=== PATIENT | female | born 2000 | race Two or more races ===

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

== ENCOUNTER 2023-07-18 17:44 | Emergency (ER) | payer OTHER, SELFPAY ==
[2023-07-18 17:45] VITALS: BP 133/95; PULSE 94; RESP 14; TEMP 35.8; O2SAT 100; BMI 30.5
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
[2023-07-18] MEDS: Diphth,Pertuss(Acell),Tet Vac 0.5 ML Vial IM (18:30)
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
[2023-07-18 20:06] VITALS: BP 123/85; PULSE 74; RESP 16; O2SAT 100
[2023-07-18 20:20] VITALS: BP 120/75; PULSE 82; RESP 18; TEMP 36.9; O2SAT 99
== END 2023-07-18 20:21 | disposition home or self-care (01) ==
PROVIDERS: Emergency Provider Emergency Medicine; PCP Pediatrics; Visit Provider Emergency Medicine
DX: S06.0X0A Concussion without loss of consciousness, initial encounter (principal); S60.222A Contusion of left hand, initial encounter; S80.02XA Contusion of left knee, initial encounter; S80.211A Abrasion, right knee, initial encounter; Y04.8XXA Assault by other bodily force, initial encounter; Y92.59 Other trade areas as the place of occurrence of the external cause; Z23 Encounter for immunization
CPT/HCPCS: 70450; 70486; 73130; 73564; 90471; 90715; 99283

== ENCOUNTER 2023-09-14 19:35 | Emergency (ER) | payer OTHER, SELFPAY ==
[2023-09-14 19:36] VITALS: BP 128/77; PULSE 77; RESP 18; TEMP 36.4; O2SAT 98; BMI 30.4
--- NOTE | 2023-09-14 20:46 | EDS_ITS ---
HPI HPI - Female History of Present Illness Chief Complaint: Informant: patient and parent Associated Symptoms Associated Symptoms: Negative for Dysuria, Frequency or Urgency Test: Positive Sexually: Positive for Active P: 0 Ab: 0 Narrative Narrative: 23-year-old female no seen past medical history other than some anxiety for which she takes Zoloft. She is currently 6 weeks has had no care as of yet. She has been having nausea and vomiting. Mom gave her some Zofran to use which has not stopped her vomiting. She denies any abdominal pain. She denies any fever. She denies any dysuria. She denies any vaginal bleeding. She denies any diarrhea. Prior similar symptoms: Yes Recent Illness/Hospitalization: No PFSH PFSH Home Medications ?Medication ?Instructions ?Recorded ?Last Taken ?Type amoxicillin 875 mg-potassium 1 tab PO BID 07/18/23 Unknown History clavulanate 125 mg tablet sertraline 100 mg tablet 100 mg PO DAILY 07/18/23 Unknown History ondansetron 4 mg disintegrating 4 mg PO Q6H PRN nausea and 09/14/23 Unknown Rx tablet vomiting #14 tabs Allergy/AdvReac Type Severity Reaction Status Date / Time No Known Allergies Allergy Verified 09/14/23 19:36 Social History household members: family number of children: 0 current occupational status: employed 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 Review of Systems ROS Unobtainable: Denies due to encephalopathy Constitutional Constitutional ED: Denies chills or fever(s) Eyes Eyes: Denies blurry vision ENT ENT ED: Denies ear pain Cardiovascular Cardiovascular: Denies chest pain Respiratory/Chest Respiratory/Chest: Denies cough or dyspnea Gastrointestinal Gastrointestinal: Reports nausea and vomiting; Denies abdominal pain, constipation, diarrhea or melena Genitourinary Genitourinary ED: Denies dysuria or hematuria Musculoskeletal Musculoskeletal: Denies arthralgias or myalgias Integumentary Denies abscess Neurologic Neurologic: Denies headache(s) Psychiatric Psychiatric: Reports anxiety Endocrine Endocrinology: Denies heat intolerance Hematologic/Lymphatic Hematologic/Lymphatic: Denies easy bleeding Allergic/Immunologic Allergic/Immunologic ED: Denies mouth swelling or tongue swelling EXAM Physical Exam Narrative Exam Narrative: Well-appearing 21-year-old female. No acute distress. Mom at bedside. Vital signs stable afebrile. H EENT exam mild dry mucous membranes. Pupils round react light. Neck nontender no lymphadenopathy. Lungs clear to auscultation. Heart regular rhythm rate about 75 no murmur. Abdomen soft nondistended normal bowel sounds no peritoneal signs. Both the right upper and right lower quadrants are unremarkable. No distention. Moving all 4 extremities. Normal strength. No edema. Back nontender. Neurologically she is awake and alert with no focal motor deficits. Benign exam. Other mild dehydration. Const Vital Signs: 09/14/23 19:36 09/14/23 21:35 Temperature 97.5 F L Temperature Source Temporal Pulse Rate 77 57 L Respiratory Rate 18 18 Blood Pressure 128/77 H 91/71 Blood Pressure Mean 94 77 Pulse Ox 98 99 Oxygen Delivery Method Room Air Room Air Positive well nourished and well developed; Negative for obese, cachectic, contractures or unkempt General Appearance ED: well developed and NAD; Negative for unkempt, cachectic, contractures, odor of alcohol detected or pallor Nutritional Appearance: Negative for cachectic or obese HEENT Reports dry mucous membranes; Denies moist mucous membranes Negative for trauma or tenderness Mouth ED: Yes dry mucous membranes Mouth: dry mucous membranes Eyes PERRL and EOMs intact bilaterally General Eye ED: Negative for pale conjunctiva or scleral icterus Neck no lymphadenopathy, supple and no JVD General: Negative for other Thyroid: Negative for tender Lymph Lymphatic: Negative for other Chest Wall inspection of chest normal and palpation of chest normal Chest: Negative for other Resp No normal respiratory effort and No clear to auscultation bilaterally Effort and Inspection: Negative for pain with movement Auscultation: Negative for rales, rhonchi, wheezes or diminished lung sounds Cardio regular rate, regular rhythm, S1 normal heart sound, no murmurs and no JVD Rate: Negative for bradycardia or tachycardic Rhythm: Negative for abnormal rhythm GI normal to inspection, nondistended, normoactive bowel sounds, soft to palpation, non-tender, non-distended and no masses Auscultation: normoactive bowel sounds Palpation: Negative for tender, guarding or rigid Back/Spine no CVA tenderness General Back: Negative for CVA tenderness Cervical Spine: Negative for cervical spine tenderness Thoracic Spine / Upper Back: Negative for thoracic spinal tenderness Lumbar Spine / Lower Back: Negative for lumbar spinal tenderness Sacrum: Negative for other Extremity normal to inspection and full ROM General Extremety ED: Negative for edema or tenderness General Extremity: Negative for edema Neuro CN's II-XII intact bilaterally Sensorium / Orientation: alert, oriented to person, oriented to place and oriented to time; Negative for confused, lethargic or stuporous Motor Exam: strength 5/5 throughout Psych mental status grossly normal Appearance: Negative for unkempt Attitude: No agitated Speech: No other Mood & Affect: Negative for depressed, anxious or tearful Skin no rashes or lesions noted and no wounds General Skin Exam: Negative for jaundice or pallor Rashes: No rashes noted Trauma: Negative for other MDM MDM MDM Narrative Medical decision making narrative: 23-year-old female currently first trimester with her first she is G1, P0 Ab0. With nausea vomiting. Looks clinically mildly dehydrated. Will be given IV fluids. Screening labs. She is having no vaginal bleeding or pelvic pain she does not need an ultrasound or clot. She be treated with Zofran and see if she can handle p.o. fluids. Repeat exam at 9:43 PM patient doing well. Received a liter normal saline. I went over her labs of both her and her mom. She will be given a prescription for Zofran for home. Outpatient follow-up with one of the 2 local OB groups. Return if feeling worse. They are comfortable with the plan. History & Record Review Discussion w/independent historian: Patient Additional record(s) reviewed:: No prior records Lab Data Attestation: I reviewed the patient's lab results. Lab results narrative: CBC normal. White count of 9. H&H 12 and 37. Platelets 328. Electrolytes show sodium 134. Potassium 3.3. Gap 11. Normal BUN of 12 creatinine 0.5. Glucose 86. Labs: Laboratory Results - last 24 hr 09/14/23 20:55 WBC 9.4 RBC 5.03 Hgb 12.3 Hct 37.5 MCV 74.6 L MCH 24.5 L MCHC 32.8 RDW Std Deviation 45.3 H RDW Coeff of Farhad 17.0 H Plt Count 328 MPV 10.0 Immature Gran % (Auto) 0.300 Neut % (Auto) 72.3 H Lymph % (Auto) 18.3 L Garfield % (Auto) 8.8 Eos % (Auto) 0.1 Baso % (Auto) 0.2 Absolute Neuts (auto) 6.8 Absolute Lymphs (auto) 1.72 Nucleated RBC % 0 Sodium 134 L Potassium 3.3 L Chloride 104 Carbon Dioxide 19.0 L Anion Gap 11 BUN 12 Creatinine 0.52 L Estim Creat Clear Calc 180.71 Est GFR (MDRD) Af Amer 191 Est GFR (MDRD) Non-Af 158 BUN/Creatinine Ratio 23.2 H Glucose 86 Calcium 9.4 Discharge Plan Triage Chief Complaint: Other Complaint: Nausea/Vomiting ED Provider: Yohan Liu Dx/Rx/DC Orders Clinical Impression: Hyperemesis arising during , First trimester , Acute hypokalemia Instructions: ED Hyperemesis Gravidarum Prescriptions: New ondansetron 4 mg tablet,disintegrating 4 mg PO Q6H PRN (Reason: nausea and vomiting) Qty: 14 0RF No Action sertraline 100 mg tablet 100 mg PO DAILY amoxicillin-pot clavulanate 875-125 mg tablet 1 tab PO BID Primary Care Provider: Loren Magallon Referrals: Loren Magallon MD [Primary Care Provider] - Sindhu Harris MD [Med Staff - Active Staff] - As soon as possible Activity Restrictions/Additional Instructions: Zofran as needed for nausea you may swallow or let dissolve under your tongue. Plenty of fluids and rest. Water, 7-Up and Gatorade. Slowly increase your diet as you are tolerating it. Call and follow-up with one of the local OB groups to get your initial care visit. Return emergency department if you are feeling worse. Print Language: [place] Disposition Disposition: Home, Self Care
[2023-09-14 21:07] LABS: Absolute Lymphocyte Count 1.72 X10^3/uL (0.83-4.51); Absolute Neutrophil Count 6.8 X10^3/uL (2.0-7.7); Basophil# 0.02 X10^3/uL; Basophil% 0.2 % (0-1); Eosinophil# 0.01 X10^3/uL; Eosinophils% 0.1 % (0-5); Hematocrit 37.5 % (37-47); Hemoglobin 12.3 g/dL (12.0-15.0); Lymphocyte # 1.72 X10^3/ul (0.83-4.51); Lymphocyte % 18.3 % (19-41); Mean Corp Hgb Conc 32.8 g/dL (32-36); Mean Corpuscular Hgb 24.5 pg (27.0-32.0); Mean Corpuscular Volume 74.6 fL (81-99); Monocyte# 0.83 X10^3/uL; Monocyte% 8.8 % (0-10); NRBC Flagged by Analyzer 0 % (0-5); Neutrophil % 72.3 % (47-70); Platelet Count 328 K/mm3 (150-450); RBC Distribution Width SD 45.3 fl (35.1-43.9); Red Blood Count 5.03 M/mm3 (4.2-5.4); White Blood Count 9.4 K/mm3 (4.4-11.0)
[2023-09-14] MEDS: Ondansetron 4 MG/2 ML Vial IV (21:09)
[2023-09-14] MEDS: 0.9% Normal Saline (1000mL) 1,000 ML 999 ML IV (21:09)
[2023-09-14 21:15] LABS: Anion Gap 11 (5-15); BUN 12 mg/dL (7-18); BUN/Creat Ratio 23.2 RATIO (10-20); Calcium,Total 9.4 mg/dL (8.5-10.1); Chloride 104 mmol/L (98-107); Creatinine, Serum 0.52 mg/dL (0.55-1.02); EST Glomerular Filtration Rate 158 mL/min (>60); Est Glom Filt Rate - Afr Amer 191 mL/min (>60); Estimated Creatinine Clearance 180.71 ml/min; Glucose 86 mg/dL (74-106); Potassium 3.3 mmol/L (3.5-5.1); Sodium Level 134 mmol/L (136-145)
[2023-09-14 21:35] VITALS: BP 91/71; PULSE 57; RESP 18; O2SAT 99
[2023-09-14] MEDS: Ondansetron ODT 4 MG Tablet PO (21:57)
== END 2023-09-14 22:07 | disposition home or self-care (01) ==
PROVIDERS: Emergency Provider Emergency Medicine; PCP Pediatrics; Visit Provider Emergency Medicine
DX: O21.1 Hyperemesis gravidarum with metabolic disturbance (principal); Z3A.01 Less than 8 weeks gestation of pregnancy; O99.341 Other mental disorders complicating pregnancy, first trimester; F41.9 Anxiety disorder, unspecified; O99.331 Smoking (tobacco) complicating pregnancy, first trimester; F17.200 Nicotine dependence, unspecified, uncomplicated; Z79.899 Other long term (current) drug therapy
CPT/HCPCS: 80048; 85025; 96361; 96374; 99283; J7030; J2405

== ENCOUNTER 2023-09-17 15:34 | Emergency (ER) | payer OTHER, SELFPAY ==
[2023-09-17 15:35] VITALS: BP 166/137; PULSE 86; RESP 18; TEMP 35.8; O2SAT 99; BMI 29.8
--- NOTE | 2023-09-17 15:55 | US_ITS ---
INDICATION: bleeding, EXAMINATION: Ultrasound US OB Transvaginal TECHNIQUE: Transvaginal (for optimal evaluation of the adnexa) pelvic ultrasound was performed. Grayscale, spectral waveform, and color flow Doppler evaluation of the adnexa. COMPARISON: None. LMP: [08/01/2023 Beta-hCG: Unknown FINDINGS: UTERUS: 8.8 x 5.1 x 4.5 cm. RIGHT OVARY: 3.8 x 3.0 x 2.6 cm. Probable corpus luteum. LEFT OVARY: 3.2 x 2.3 x 1.3 cm. Normal. FREE FLUID: Trace. INTRAUTERINE GESTATIONAL SAC(s) (size/shape): None. Thickened and heterogenous endometrium with mobile echoes.. YOLK SAC: Not identified POLE: Not identified. HEART MOTION: Not detected. US/Transvaginal w/Preg US IMPRESSION: No intrauterine demonstrated. Sonographic evaluation of the endometrium compatible with active bleeding, likely in progress. In a hemodynamically stable patient, a follow-up sonographic examination in 7-10 days in combination with serial beta hCG levels is recommended. Electronically Signed: Jim Nye MD at 17:52 EDT ,
--- NOTE | 2023-09-17 15:55 | ED.VIS.FEGU ---
HPI HPI - Female History of Present Illness Chief Complaint: Vag Bld, Preg Detail of Chief Complaint: Vaginal bleeding and lower abdominal pain/cramping Informant: patient Narrative Narrative: Patient presents with lower abdominal pain and vaginal bleeding. Patient states that she think she is about 6 weeks . She contacted [facility] via telehealth and was prescribed medication which she started taking yesterday. She took Mifepristone yesterday. She took 4 tablets of the Misoprostol today and soon after started having lower abdominal cramping and bleeding. She started bleeding around 2:45 PM and has gone through 1 pad and then sat on the toilet and was bleeding on the toilet. She denies passing any tissues or clots. Patient says she has no medical problems. She is G1, P0. She tells me that she had an ultrasound done a week ago and it showed a subchorionic hemorrhage. 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 history of recent travel: No sexually active: No Smoking Status: Current every day smoker tobacco type: e-cigarettes alcohol intake: never substance use type: does not use what type of physical activity do you participate in: none seatbelt use: always do you feel safe at home: Yes ROS ROS ED Constitutional Constitutional ED: Reports systems reviewed and no addt'l complaints, except as documented; Denies body ache(s), change in weight or chills Eyes Eyes: Denies acute decrease in peripheral vision, change in vision, double vision or loss of vision ENT ENT ED: Reports none; Denies ear pain, lip swelling, loss taste/smell, neck pain, otalgia or sore throat Cardiovascular Cardiovascular: Reports none; Denies abdominal pain, chest pain with activity, leg edema, lightheadedness, palpitations, rapid heart rate or syncope Respiratory/Chest Respiratory/Chest: Reports none; Denies change in mental status, dry cough, dyspnea, hemoptysis, shortness of breath at rest or shortness of breath with exertion Gastrointestinal Gastrointestinal: Reports none and abdominal pain; Denies change in stool character, diarrhea, hematemesis, hematochezia, melena, rectal bleeding or vomiting Genitourinary Genitourinary ED: Reports none and other Details: Vaginal bleeding ; Denies abdominal discomfort, anuria, dysuria, genital pain or polyuria Musculoskeletal Musculoskeletal: Reports none; Denies arthralgias, back pain, difficulty walking, extremity pain, muscle weakness or myalgias Integumentary Reports none; Denies abscess or rash Neurologic Neurologic: Reports none; Denies abnormal gait, confusion, focal weakness, frequent falls, headache(s), loss of vision, numbness, paresthesias, radicular pain, vertigo or weakness Psychiatric Psychiatric: Reports systems reviewed and no addt'l complaints, except as documented and none; Denies behavioral changes, confusion, difficulty concentrating, hallucinations, suicidal ideation, tactile hallucinations or visual hallucinations Endocrine Endocrinology: Denies none, cold intolerance, excessive sweating, fatigue or heat intolerance Hematologic/Lymphatic Hematologic/Lymphatic: Reports none; Denies anemia, easy bleeding or easy bruising Allergic/Immunologic Allergic/Immunologic ED: Denies as per HPI, none, lip swelling, mouth swelling, throat swelling, tongue swelling or hives EXAM Physical Exam Const Vital Signs: 09/17/23 15:35 09/17/23 17:35 Temperature 96.5 F L Temperature Source Temporal Pulse Rate 86 84 Respiratory Rate 18 18 Blood Pressure 166/137 H 146/99 H Blood Pressure Mean 146 114 Pulse Ox 99 98 Oxygen Delivery Method Room Air Positive well nourished and well developed General Appearance ED: well developed and NAD HEENT Reports TM's clear and moist mucous membranes normocephalic and atraumatic; Negative for trauma or tenderness Tympanic Membrane ED: Yes TM's clear Eyes PERRL and EOMs intact bilaterally General Eye ED: Negative for pale conjunctiva or scleral icterus Neck no lymphadenopathy, supple and no JVD General: Negative for tenderness Chest Wall inspection of chest normal and palpation of chest normal Chest: Negative for tenderness Resp normal respiratory effort and clear to auscultation bilaterally Effort and Inspection: Negative for respiratory distress or pain with movement Auscultation: Negative for rhonchi, wheezes or diminished lung sounds Cardio regular rate, regular rhythm, S1 normal heart sound, S2 normal heart sound and no murmurs Peripheral Pulses: pulses 2+ throughout GI normal to inspection, nondistended, normoactive bowel sounds, soft to palpation, non-tender and no masses GI Narrative: Mild diffuse suprapubic tenderness. There is no rebound, rigidity, or peritoneal signs. No mass palpated. Back/Spine no CVA tenderness and no thoracic nor lumbar tenderness Extremity normal to inspection General Extremety ED: Negative for edema General Extremity: Negative for edema Neuro oriented x3, CN's II-XII intact bilaterally, no sensory deficits noted and gait normal Sensorium / Orientation: awake, alert, oriented to person, oriented to place and oriented to time Motor Exam: strength 5/5 throughout and strength abnormal Psych mental status grossly normal Skin no rashes or lesions noted and no wounds MDM MDM MDM Narrative Medical decision making narrative: Patient presents to the emergency department with vaginal bleeding in the process of having first trimester induced. Patient complaining of lower abdominal pain and cramping. She tells me she had an ultrasound last week but I have no access to this. IV line established. CBC with differential count of 10.8 with hemoglobin 12.7 and platelet count of 353. hCG quant was 37,000. Blood type is O-. Patient had a pelvic ultrasound read by radiology as no intrauterine demonstrated and there was sonographic evaluation of endometrium compatible with active bleeding likely in progress. Discussed case with ASSISTANT INFANT TODDLER TEACHER physician on-call for no doc Dr. Wilder who recommended giving patient Toradol and recommending Aleve or Motrin at home. Dr. Wilder did not feel patient needed RhoGAM given patient's O- blood type however she is quite early in her . Patient was advised to return if persistent heavy bleeding of more than 1 pad an hour and 4 consecutive hours or if she should become lightheaded or dizzy or diaphoretic or condition should worsen anyway. Lab Data Attestation: I reviewed the patient's lab results. Labs: Laboratory Results - last 24 hr 09/17/23 16:10 WBC 10.8 RBC 5.19 Hgb 12.7 Hct 38.2 MCV 73.6 L MCH 24.5 L MCHC 33.2 RDW Std Deviation 42.7 RDW Coeff of Farhad 16.3 H Plt Count 353 MPV 10.4 Immature Gran % (Auto) 0.400 Neut % (Auto) 76.1 H Lymph % (Auto) 14.5 L [place] % (Auto) 8.6 Eos % (Auto) 0.2 Baso % (Auto) 0.2 Absolute Neuts (auto) 8.2 H Absolute Lymphs (auto) 1.56 Nucleated RBC % 0 HCG, Quant 72473 H Blood Type O NEGATIVE Radiography Diagnostic Testing: Clinical Impression(s) from Imaging Studies Obstetrics Ultrasound 09/17/23 15:55 IMPRESSION: No intrauterine demonstrated. Sonographic evaluation of the endometrium compatible with active bleeding, likely in progress. In a hemodynamically stable patient, a follow-up sonographic examination in 7-10 days in combination with serial beta hCG levels is recommended. Electronically Signed: iJm Nye MD at 17:52 EDT Reading Location ID and State: [facility] / [place] Tel , Service support , Discharge Plan Triage Chief Complaint: Vag Bld, Preg ED Provider: Lukas Bashir Dx/Rx/DC Orders Clinical Impression: in first trimester Instructions: Miscarriage Threatened Prescriptions: New hydrocodone-acetaminophen 5-325 mg tablet 1 tab PO Q4H PRN PRN (Reason: Pain) 2 Days Qty: 10 0RF No Action sertraline 100 mg tablet 100 mg PO DAILY Primary Care Provider: Loren Magallon Referrals: Loren Magallon MD [Primary Care Provider] - Carlyn Wilder MD [Med Staff - Active Staff] - 3-5 Days Print Language: New Zealander Disposition Disposition: Home, Self Care
[2023-09-17] MEDS: Ondansetron 4 MG/2 ML Vial IV (16:20)
[2023-09-17] MEDS: 0.9% Normal Saline (1000mL) 1,000 ML 999 ML IV (16:20)
[2023-09-17] MEDS: Morphine 4 MG/ML Syringe IV ×2 (16:21→18:30)
[2023-09-17 16:24] LABS: Absolute Lymphocyte Count 1.56 X10^3/uL (0.83-4.51); Absolute Neutrophil Count 8.2 X10^3/uL (2.0-7.7); Basophil# 0.02 X10^3/uL; Basophil% 0.2 % (0-1); Eosinophil# 0.02 X10^3/uL; Eosinophils% 0.2 % (0-5); Hematocrit 38.2 % (37-47); Hemoglobin 12.7 g/dL (12.0-15.0); Lymphocyte # 1.56 X10^3/ul (0.83-4.51); Lymphocyte % 14.5 % (19-41); Mean Corp Hgb Conc 33.2 g/dL (32-36); Mean Corpuscular Hgb 24.5 pg (27.0-32.0); Mean Corpuscular Volume 73.6 fL (81-99); Mean Platelet Vol. 10.4 fl (6.2-12.0); Monocyte# 0.92 X10^3/uL; Monocyte% 8.6 % (0-10); NRBC Flagged by Analyzer 0 % (0-5); Neutrophil # 8.19 X10^3/uL (2.7-7.7); Neutrophil % 76.1 % (47-70); Platelet Count 353 K/mm3 (150-450); RBC Distribution Width CV 16.3 % (11.6-14.6); RBC Distribution Width SD 42.7 fl (35.1-43.9); Red Blood Count 5.19 M/mm3 (4.2-5.4); White Blood Count 10.8 K/mm3 (4.4-11.0)
[2023-09-17 17:21] LABS: hCG Titer Quant., Serum 37512 mIU/mL (1-3)
[2023-09-17 17:35] VITALS: BP 146/99; PULSE 84; RESP 18; O2SAT 98
--- NOTE | 2023-09-17 17:55 | CM.ED ---
Date of referral: 09/17/23: 17:56 Reason For Referral: Vaginal Bleeding; Referred by: Social Work Identification textile pin worker received consent from patient to complete visit. Upon entry, patient?s mother was in the room and was asked and agreeable to allowing social work msw to meet with patient alone. textile pin worker offered emotional support to patient who was in some distress over complications related to and prescribed medication patient got online to abort the which was causing the abdominal pain and excessive bleeding. Patient stated she was still experiencing some abdominal pain however stated overall she was doing ok.? textile pin worker inquired about patient?s current support system at which point she identified both of her parents and her 29 year old sister. Patient stated she currently resides with a female roommate who was the one who brought her to the ED to be evaluated and treated. Patient described a positive and supportive relationship with her roommate who stayed with patient for a while in her room once patient arrived. Patient reported everyone in her family is aware of the and and have helped her through this difficult time. Patient reported that the father of the baby is ?aware? but not involved. Patient identified that as a ?good thing?. Patient reported she?s currently on anxiety medication which patient stated works well. Patient verbalized overall management of anxiety related symptoms. textile pin worker provided education and asked patient if she would be interested in counseling services and patient stated she is currently interested in having someone to talk to. Patient stated she was supposed to get connected to a counselor a few years ago but then ?COVID happened?. textile pin worker provided patient with the Mental Health Resource Directory for [facility].? textile pin worker provided emotional support and community resources for counseling. Patient denied any additional or requests at this time. Carlyn Llanes, ASSISTANT SIGNAL MAINTAINER, ORTHODONTIST SMALL BUSINESS OWNER
[2023-09-17] MEDS: Ketorolac 30 MG/ML Syringe IV (18:59)
[2023-09-17 19:00] VITALS: BP 149/70; PULSE 53; RESP 18; O2SAT 97
[2023-09-17 19:21] VITALS: BP 149/70; PULSE 58; RESP 18; TEMP 37.1; O2SAT 99
== END 2023-09-17 19:24 | disposition home or self-care (01) ==
PROVIDERS: Emergency Provider Emergency Medicine; PCP Pediatrics; Visit Provider Emergency Medicine
DX: O04.89 (Induced) termination of pregnancy with other complications (principal); R10.30 Lower abdominal pain, unspecified; O99.331 Smoking (tobacco) complicating pregnancy, first trimester; F17.290 Nicotine dependence, other tobacco product, uncomplicated
CPT/HCPCS: 76817; 84702; 85025; 86900; 86901; 96361; 96374; 96375; 96376; 99283; J7030; A4216; J2405